=== PATIENT | male | born 1950 | race Caucasian/White ===

== ENCOUNTER 2018-01-16 01:15 | Day surgery (SDC) | payer OTHER ==
--- OUTSIDE RECORDS SUMMARY | 2018-01-16 01:17 | XMS REPORT ---
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 50125901503 18 MG/3ML January 07, Jul 06, Active 1.2 units Subcutaneous 2017 2017 daily Results No Known Results Summary Purpose eClinicalWorks Submission
--- OUTSIDE RECORDS SUMMARY | 2018-01-16 01:17 | XMS REPORT ---
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
--- OUTSIDE RECORDS SUMMARY | 2018-01-16 01:17 | XMS REPORT ---
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 Problem Essential hypertension I10 Active Problem Body mass index (BMI) of 31.0-31.9 Z68.31 Active in adult Problem Pure hypercholesterolemia E78.00 Active Problem Diabetes 1.5, 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 Problem Acquired hypothyroidism E03.9 Active Problem Obstructive sleep apnea G47.33 Active Assessment Microalbuminuria R80.9 Active Assessment Obstructive sleep apnea G47.33 Active Assessment Body mass index (BMI) of 31.0-31.9 Z68.31 Active in adult Medications Medication Code Code Instructions Start End Status Dosage System Date Date Lisinopril ND 95790865074 20 MG Orally December 26, Active 1 tablet Once a day 2017 Glimepiride ND 68092752670 1 MG Orally May Inactive 1 tablet Once a day , 2017 breakfast or the first main meal of the day Metformin HCl ND 28395312839 500 MG Orally Active 2 tablet Once a day with a meal Multivitamin [facility] 35572504233 - Orally Active not defined Adult Bydureon BCise ND 62788617900 2 MG/0.85ML December 26Jun Active as directed Subcutaneous 2018 , 2018 Adult Aspirin EC ND 72488578202 81 MG Orally December 26Jun Active 1 tablet Low Strength Once a day 2017 Simvastatin ND 87569302896 20 MG Orally December 26, Active 1 tablet in Once a day 2018 the evening Amitriptyline ND 71470362245 10 MG Orally Active 1 tablet HCl Once a day Pantoprazole ND 10486940484 20 MG Orally Active 1 tablet Sodium Once a day Results No Known Results Summary Purpose eClinicalWorks Submission
[2018-01-16] MEDS ORDERED: GLUCAGON 1 MG/VIAL ONE ×2 (02:01→04:20)
[2018-01-16] MEDS ORDERED: NA CHLORIDE 0.9% 1,000 ML ONE ×2 (02:01→07:45)
[2018-01-16] MEDS ORDERED: FAMOTIDINE 20 MG/2 ML VIAL IV ONE (02:01)
[2018-01-16 02:24] LABS: Absolute Lymphocytes (CBC) 2.5 K/uL (0.7-4.9); Absolute Neutrophil 8.9 K/uL (1.8-8.0); Basophils % 1.2 % (0-1.3); Eosinophils % 2.5 % (0-4.4); Hematocrit 46.8 % (39.6-49.0); Lymphocytes % 19.2 % (15.3-44.8); MCH 30.6 pg (27.0-35.0); MPV 9.8 fL (7.6-11.3); Monocytes % 7.5 % (3.3-12.3); RBC Red Blood Cell Count 5.26 M/uL (4.33-5.43)
[2018-01-16 02:27] LABS: Protime INR 0.95
[2018-01-16 02:36] LABS: Bicarbonate 24 mEq/L (21-31); Glucose Level 216 mg/dL (65-120); Lipase 58 U/L (22-51); Potassium 4.3 mEq/L (3.6-5.0); Sodium Level 137 mEq/L (135-145)
[2018-01-16 02:40] LABS: CKMB Creatine Kinase MB 4.4 ng/ml (0.3-4.0)
[2018-01-16 02:42] LABS: ALT/SGPT 27 IU/L (10-60); AST/SGOT 22 IU/L (10-42); Albumin 4.2 g/dL (3.2-5.5); Alkaline Phosphatase 68 IU/L (42-121); BUN Blood Urea Nitrogen 15 mg/dL (6-20); Bilirubin Direct 0.1 mg/dL (0-0.2); Creatine Phosphokinase 165 IU/L (22-269); Protein, Total 7.8 g/dL (6.0-8.3)
--- NOTE | 2018-01-16 04:11 | ER ---
Nurse's Notes [facility] Name: Obie Maldonado Age: 67 yrs Sex: Male : 1950 Arrival Date: 01/16/2018 Time: 01:17 Bed 8 Private MD: Leroy Temple Diagnosis: Food in esophagus;Chest pain, unspecified;Abdominal tenderness;Type 2 diabetes mellitus Presentation: 01/16 01:28 Presenting complaint: Patient states: "Today I had a stake and bronchioli for dinner ao and then I started to had abdominal pain and vomiting." Patient pins at the epigastric area. Patient also complains of unable to burp and gas. Transition of care: patient was not received from another setting of care. Onset of symptoms was January 15, 2018 at 16:00. Risk Assessment: Do you want to hurt yourself or someone else? Patient reports no desire to harm self or others. Initial Sepsis Screen: Does the patient meet any 2 criteria? No. Patient's initial sepsis screen is negative. Does the patient have a suspected source of infection? No. Patient's initial sepsis screen is negative. Care prior to arrival: None. 01:28 Method Of Arrival: Ambulatory ao 01:28 Acuity: LAUREN 3 ao Triage Assessment: 01:33 General: Appears in no apparent distress. comfortable, Behavior is calm, cooperative, ao appropriate for age. Pain: Complains of pain in epigastric area Pain does not radiate. Pain currently is 5 out of 10 on a pain scale. EENT: No signs and/or symptoms were reported regarding the EENT system. Neuro: Level of Consciousness is awake, alert, Oriented to person, place, time, situation, Appropriate for age Computer Support Technician are equal bilaterally Moves all extremities. Speech is normal, Facial symmetry appears normal. Cardiovascular: Capillary refill < 3 seconds Patient's skin is warm and dry. Respiratory: Airway is patent Respiratory effort is even, unlabored, Respiratory pattern is regular, symmetrical. GI: Abdomen is obese, Reports upper abdominal pain, nausea, Pain is 5 out of 10 on a pain scale. vomiting, since 1600 yesterday. : No signs and/or symptoms were reported regarding the genitourinary system. Derm: Skin is intact, Skin is pink, warm \\T\\ dry. Skin temperature is warm. Musculoskeletal: No signs and/or symptoms reported regarding the musculoskeletal system. Historical: - Allergies: 01:33 No Known Allergies; ao - Home Meds: :33 Metformin Oral [Active]; Simvastatin Oral [Active]; Lisinopril Oral [Active]; ao - PMHx: :33 Hypertension; Diabetes - NIDDM; ao - PSHx: :33 Appendectomy; ao - Immunization history:: Adult Immunizations up to date. - Social history:: Smoking status: Patient uses tobacco products, smokes one pack cigarettes per day. Patient uses alcohol, occasionally. Patient/guardian denies using street drugs. - Ebola Screening: : Patient negative for fever greater than or equal to 101.5 degrees Fahrenheit, and additional compatible Ebola Virus Disease symptoms Patient denies exposure to infectious person Patient denies travel to an Ebola-affected area in the 21 days before illness onset. - Family history:: not pertinent. Screenin:33 Abuse screen: Denies threats or abuse. Denies injuries from another. Nutritional ao screening: No deficits noted. Tuberculosis screening: No symptoms or risk factors identified. Fall Risk None identified. Assessment: 01:35 General: See triage assessment. GI: Bowel sounds present X 4 quads. Abd is soft and non ao tender. 02:36 Reassessment: Patient appears in no apparent distress at this time. Patient and/or ao family updated on plan of care and expected duration. Pain level reassessed. Patient is alert, oriented x 3, equal unlabored respirations, skin warm/dry/pink. 03:46 Reassessment: Patient and/or family updated on plan of care and expected duration. Pain ao level reassessed. Patient is alert, oriented x 3, equal unlabored respirations, skin warm/dry/pink. Patient has not vomited and states that his nausea is gone. 07:34 Reassessment: Pt transported to endoscopy via wheelchair with ASTER Moon. jl7 Vital Signs: 01:27 BP 141 / 85; Pulse 103; Resp 18; Temp 98.7; Pulse Ox 95% on R/A; Weight 106.59 kg; ao Height 6 ft. 0 in. (182.88 cm); Pain 5/10; 02:36 BP 143 / 75; Pulse 84; Resp 18; Pulse Ox 98% ; ao 03:46 BP 133 / 87; Pulse 84; Resp 16; Pulse Ox 99% ; Pain 0/10; ao 01:27 Body Mass Index 31.87 (106.59 kg, 182.88 cm) ao ED Course: 01:17 Patient arrived in ED. am2 01:18 Leroy Temple MD is Private Physician. am2 01:30 Domenico Hackett MD is Attending Physician. indy 01:31 Triage completed. ao 01:31 Arm band placed on right wrist. Patient placed in an exam room, on a stretcher, on ao pulse oximetry, Patient notified of wait time. 01:35 Patient has correct armband on for positive identification. Pulse ox on. NIBP on. ao 01:38 Abdelrahman Chadwick, RN is Primary Nurse. ao 02:02 X-ray completed. Portable x-ray completed in exam room. Patient tolerated procedure kw well. 02:03 XRAY Chest (1 view) In Process Unspecified. EDMS 04:08 Leroy Temple MD is Hospitalizing Provider. indy 06:[address] via wheelchair. kw1 06:02 CT completed. Patient tolerated procedure well. Patient moved back from CT. kw1 07:01 No provider procedures requiring assistance completed. Patient admitted, IV remains in ao place. Administered Medications: 02:19 Drug: NS 0.9% 500 ml Route: IV; Rate: bolus; Site: left antecubital; ao 07:00 Follow up: IV Status: Completed infusion ao 02:19 Drug: Pepcid 20 mg Route: IVP; Site: left antecubital; ao 06:53 Follow up: Response: No adverse reaction ao 02:19 Drug: Glucagon 1 mg Route: IVP; Site: left antecubital; ao 07:01 Follow up: Response: No adverse reaction ao 02:50 Drug: NS 0.9% 1000 ml Route: IV; Rate: 125 ml/hr; Site: left antecubital; ao 07:00 Follow up: IV Status: Completed infusion ao 04:24 Drug: Glucagon 1 mg Route: IVP; Site: left antecubital; ao 07:00 Follow up: Response: No adverse reaction ao Outcome: 04:10 Decision to Hospitalize by Provider. indy 07:01 Admitted to ER Hold. Please see [facility] for further documentation. ao 07:01 Condition: stable 07:01 Instructed on the need for admit. 07:34 Patient left the ED. jl7 Signatures: Dispatcher [employer] Domenico Crook MD MD cha Whitley, Kimberlee kw Ortiz, Alex, RN RN ao Leal, Jahala, RN RN jl7 Celina Booker Kimberly [facility]
--- NOTE | 2018-01-16 04:11 | EDPHYS ---
Physician Documentation [facility] Name: Obie Maldonado Age: 67 yrs Sex: Male : 1950 Arrival Date: 01/16/2018 Time: 01:17 Bed 8 Private MD: Leroy Temple ED Physician Domenico Hackett HPI: 01/16 01:49 This 67 yrs old Male presents to ER via Ambulatory with complaints of indy Abdominal Distention, Epigastric Pain, burping often. 01:49 The patient or guardian reports chest pain that is located primarily in the substernal indy area, epigastric area. Onset: just prior to arrival, this morning. The patient presents with abdominal pain in the epigastric area, in the upper abdomen. Onset: The symptoms/episode began/occurred just prior to arrival, this morning. The patient presents to the emergency department with nausea, vomiting, abdominal pain, of the epigastric area. Onset: The symptoms/episode began/occurred just prior to arrival, this morning. Possible causes: food bolus, steak. The symptoms are aggravated by food , The symptoms are alleviated by nothing. remaining still. Historical: - Allergies: 01:33 No Known Allergies; ao - Home Meds: 01:33 Metformin Oral [Active]; Simvastatin Oral [Active]; Lisinopril Oral [Active]; ao - PMHx: 01:33 Hypertension; Diabetes - NIDDM; ao - PSHx: 01:33 Appendectomy; ao - Immunization history:: Adult Immunizations up to date. - Social history:: Smoking status: Patient uses tobacco products, smokes one pack cigarettes per day. Patient uses alcohol, occasionally. Patient/guardian denies using street drugs. - Ebola Screening: : Patient negative for fever greater than or equal to 101.5 degrees Fahrenheit, and additional compatible Ebola Virus Disease symptoms Patient denies exposure to infectious person Patient denies travel to an Ebola-affected area in the 21 days before illness onset. - Family history:: not pertinent. ROS: 01:49 Constitutional: Negative for fever, chills, and weight loss, Eyes: Negative for injury, indy pain, redness, and discharge, ENT: Negative for injury, pain, and discharge, Neck: Negative for injury, pain, and swelling, Cardiovascular: Negative for chest pain, palpitations, and edema, Respiratory: Negative for shortness of breath, cough, wheezing, and pleuritic chest pain, Back: Negative for injury and pain, : Negative for injury, bleeding, discharge, and swelling, MS/Extremity: Negative for injury and deformity, Skin: Negative for injury, rash, and discoloration, Neuro: Negative for headache, weakness, numbness, tingling, and seizure, Psych: Negative for depression, anxiety, suicide ideation, homicidal ideation, and hallucinations, Allergy/Immunology: Negative for hives, rash, and allergies, Endocrine: Negative for neck swelling, polydipsia, polyuria, polyphagia, and marked weight changes, Hematologic/Lymphatic: Negative for swollen nodes, abnormal bleeding, and unusual bruising. 01:49 Abdomen/GI: Positive for abdominal pain, nausea and vomiting. Exam: 01:49 Constitutional: This is a well developed, well nourished patient who is awake, alert, indy and in no acute distress. Head/Face: Normocephalic, atraumatic. Eyes: Pupils equal round and reactive to light, extra-ocular motions intact. Lids and lashes normal. Conjunctiva and sclera are non-icteric and not injected. Cornea within normal limits. Periorbital areas with no swelling, redness, or edema. ENT: Nares patent. No nasal discharge, no septal abnormalities noted. Tympanic membranes are normal and external auditory canals are clear. Oropharynx with no redness, swelling, or masses, exudates, or evidence of obstruction, uvula midline. Mucous membranes moist. Neck: Trachea midline, no thyromegaly or masses palpated, and no cervical lymphadenopathy. Supple, full range of motion without nuchal rigidity, or vertebral point tenderness. No Meningismus. Chest/axilla: Normal chest wall appearance and motion. Nontender with no deformity. No lesions are appreciated. Cardiovascular: Regular rate and rhythm with a normal S1 and S2. No gallops, murmurs, or rubs. Normal PMI, no JVD. No pulse deficits. Respiratory: Lungs have equal breath sounds bilaterally, clear to auscultation and percussion. No rales, rhonchi or wheezes noted. No increased work of breathing, no retractions or nasal flaring. Back: No spinal tenderness. No costovertebral tenderness. Full range of motion. Male : Normal genitalia with no discharge or lesions. Skin: Warm, dry with normal turgor. Normal color with no rashes, no lesions, and no evidence of cellulitis. MS/ Extremity: Pulses equal, no cyanosis. Neurovascular intact. Full, normal range of motion. Neuro: Awake and alert, GCS 15, oriented to person, place, time, and situation. Cranial nerves II-XII grossly intact. Motor strength 5/5 in all extremities. Sensory grossly intact. Cerebellar exam normal. Normal gait. Psych: Awake, alert, with orientation to person, place and time. Behavior, mood, and affect are within normal limits. 01:49 Abdomen/GI: Inspection: distension, Bowel sounds: normal, Palpation: mild abdominal tenderness, in all quadrants. Vital Signs: 01:27 BP 141 / 85; Pulse 103; Resp 18; Temp 98.7; Pulse Ox 95% on R/A; Weight 106.59 kg; ao Height 6 ft. 0 in. (182.88 cm); Pain 5/10; 02:36 BP 143 / 75; Pulse 84; Resp 18; Pulse Ox 98% ; ao 03:46 BP 133 / 87; Pulse 84; Resp 16; Pulse Ox 99% ; Pain 0/10; ao 01:27 Body Mass Index 31.87 (106.59 kg, 182.88 cm) ao MDM: 01:30 Patient medically screened. [facility] 01:52 Data reviewed: vital signs, nurses notes, lab test result(s), EKG, radiologic studies, [facility] CT scan, plain films. 01/16 01:47 Order name: Basic Metabolic Panel; Complete Time: 03:41 [facility] 01/16 01:47 Order name: BNP; Complete Time: 03:41 [facility] 01/16 01:47 Order name: CBC with Diff; Complete Time: 03:41 [facility] 01/16 01:47 Order name: Ckmb; Complete Time: 03:41 [facility] 01/16 01:47 Order name: CPK; Complete Time: 03:41 [facility] 01/16 01:47 Order name: LFT's; Complete Time: 03:41 [facility] 01/16 01:47 Order name: Magnesium; Complete Time: 03:41 [facility] 01/16 01:47 Order name: PT-INR; Complete Time: 03:41 [facility] 01/16 01:47 Order name: Ptt, Activated; Complete Time: 03:41 [facility] 01/16 01:47 Order name: Troponin (emerg Dept Use Only); Complete Time: 03:41 [facility] 01/16 01:47 Order name: Lipase; Complete Time: 03:41 [facility] 01/16 04:18 Order name: Basic Metabolic Panel EDMS 01/16 04:18 Order name: Basic Metabolic Panel EDMS 01/16 04:18 Order name: CBC with Automated Diff EDMS 01/16 01:47 Order name: XRAY Chest (1 view) [facility] 01/16 01:47 Order name: EKG; Complete Time: 01:48 [facility] 01/16 04:08 Order name: CT Chest, Abdomen, Pelvis - W/Contrast: no oral [facility] 01/16 04:18 Order name: CBC with Automated Diff EDMS 01/16 04:18 Order name: Troponin I EDMN 01/16 04:18 Order name: Troponin I EDMN 01/16 04:18 Order name: Troponin I EDMN 01/16 04:18 Order name: Chest Single View EDMS 01/16 04:18 Order name: Chest Single View EDMS 01/16 06:29 Order name: Urine Dipstick--Ancillary (enter results) rg 01/16 06:51 Order name: Urine Dipstick-Ancillary EDMN 01/16 01:47 Order name: Cardiac monitoring; Complete Time: 02:19 [facility] 01/16 01:47 Order name: EKG - Nurse/Tech; Complete Time: 06:53 [facility] 01/16 01:47 Order name: IV Saline Lock; Complete Time: 02:20 [facility] 01/16 01:47 Order name: Labs collected and sent; Complete Time: 02:20 [facility] 01/16 01:47 Order name: O2 Per Protocol; Complete Time: 02:20 [facility] 01/16 01:47 Order name: O2 Sat Monitoring; Complete Time: 02:20 [facility] 01/16 01:47 Order name: Urine Dipstick-Ancillary (obtain specimen); Complete Time: 06:53 [facility] 01/16 04:18 Order name: CONS Physician Consult EDMN 01/16 04:18 Order name: NPO EDMN 01/16 04:18 Order name: EKG Electrocardiogram EDMS 01/16 04:18 Order name: EKG Electrocardiogram EDMS 01/16 04:18 Order name: EKG Electrocardiogram EDMS 01/16 04:18 Order name: EKG Electrocardiogram EDMS 01/16 04:18 Order name: EKG Electrocardiogram EDMS Administered Medications: 02:19 Drug: NS 0.9% 500 ml Route: IV; Rate: bolus; Site: left antecubital; ao 07:00 Follow up: IV Status: Completed infusion ao 02:19 Drug: Pepcid 20 mg Route: IVP; Site: left antecubital; ao 06:53 Follow up: Response: No adverse reaction ao 02:19 Drug: Glucagon 1 mg Route: IVP; Site: left antecubital; ao 07:01 Follow up: Response: No adverse reaction ao 02:50 Drug: NS 0.9% 1000 ml Route: IV; Rate: 125 ml/hr; Site: left antecubital; ao 07:00 Follow up: IV Status: Completed infusion ao 04:24 Drug: Glucagon 1 mg Route: IVP; Site: left antecubital; ao 07:00 Follow up: Response: No adverse reaction ao Disposition: 01/16/18 04:10 Hospitalization ordered by Leroy Temple for Observation. Preliminary diagnosis are Food in esophagus, Chest pain, unspecified, Abdominal tenderness, Type 2 diabetes mellitus. - Bed requested for [facility] ER HOLD. - Status is Observation. jl7 - Condition is Fair. - Problem is new. - Symptoms are unchanged. UTI on Admission? No Signatures: Dispatcher [employer] EDMS Kimberly Moore RN RN kl Anderson, Corey, MD MD cha Ortiz, Alex RN Lm Pedraza RN RN jl7 Corrections: (The following items were deleted from the chart) 06:11 04:10 Hospitalization Ordered by Leroy Temple MD for Observation. Preliminary diagnosis kl is Food in esophagus; Chest pain, unspecified; Abdominal tenderness; Type 2 diabetes mellitus. Bed requested for Telemetry/MedSurg (observation). Status is Observation. Condition is Fair. Problem is new. Symptoms are unchanged. UTI on Admission? No. indy 07:34 06:11 01/16/2018 04:10 Hospitalization Ordered by Leroy Temple MD for Observation. jl7 Preliminary diagnosis is Food in esophagus; Chest pain, unspecified; Abdominal tenderness; Type 2 diabetes mellitus. Bed requested for [facility] ER HOLD. Status is Observation. Condition is Fair. Problem is new. Symptoms are unchanged. UTI on Admission? No. carri
[2018-01-16] MEDS ORDERED: ONDANSETRON 4 MG/2 ML VIAL IV PRN (04:15)
[2018-01-16] MEDS ORDERED: MORPHINE 4 MG/ML SYR IV PRN (04:15)
[2018-01-16] MEDS ORDERED: ACETAMINOPHEN 500 MG TAB PO PRN (04:15)
[2018-01-16] MEDS ORDERED: NA CHLORIDE 0.9% 1,000 ML IV SCH (05:00)
[2018-01-16 06:50] LABS: Urine Blood NEGATIVE (NEG); Urine Glucose 2+ (NEG); Urine Protein NEGATIVE (NEG); Urine pH 5.5 (5.0-7.0)
[2018-01-16 07:14] VITALS: BMI 31.8
[2018-01-16] MEDS ORDERED: PROPOFOL 200 MG/20 ML VIAL IV ONE (08:11)
--- NOTE | 2018-01-16 08:24 | EKG ---
Test Date: 2018-01-16 Test Time: 02:25:54 Herbarium Worker: BRYAN MEASUREMENT RESULTS: Intervals: Rate: 80 SC: 202 QRSD: 116 QT: 396 QTc: 456 [place]: P: 38 SC: 202 QRS: -31 T: 42 INTERPRETIVE STATEMENTS: Normal sinus rhythm Left axis deviation Cannot rule out Anterior infarct, age undetermined Abnormal ECG No previous ECG available for comparison Electronically Signed On 01-16-18 08:24:23 CDT by Juanpablo Jansen
[2018-01-16 08:44] VITALS: TEMP 97.2
[2018-01-16 08:46] VITALS: BP 143/74
[2018-01-16] MEDS ORDERED: FAMOTIDINE 20 MG/2 ML VIAL IV SCH (09:00)
--- NOTE | 2018-01-16 09:30 | P.SSS ---
Patient History Date of Service: 01/16/18 Primary Care Provider: Windy Reason for admission: Esophageal stricture History of Present Illness: Patient comes in to the ER after eating steak and feeling it getting stuck. He was seen by Dr. Mckinney who did an endoscopy. He has no complaints at the moment. The patient was using omeprazole. However was having worsening of his gerd symptoms. Allergies No Known Allergies Allergy (Verified 01/16/18 06:58) Home Medications: Pantoprazole Sodium [Protonix] 40 mg PO DAILY #90 tablet. 01/16/18 - Past Medical/Surgical History Has patient received pneumonia vaccine in the past: Yes Diabetic: No -: Hypertension -: NIDDM -: Appendectomy - Social History Smoking Status: Current every day smoker Alcohol use: Yes CD- Drugs: No Caffeine use: Yes Place of Residence: Home Review of Systems 10-point ROS is otherwise unremarkable Gastrointestinal: Other (dysphagia) Physical Examination - Vital Signs Temperature: 97.2 F Blood Pressure: 143/74 Pulse: 76 Respirations: 18 Pulse Ox (%): 98 - Physical Exam General: Alert, In no apparent distress HEENT: Atraumatic, PERRLA, Mucous membr. moist/pink, EOMI, Sclerae nonicteric Neck: Supple, 2+ carotid pulse no bruit, No LAD, Without JVD or thyroid abnormality Respiratory: Clear to auscultation bilaterally, Normal air movement Cardiovascular: Regular rate/rhythm, Normal S1 S2 Gastrointestinal: Normal bowel sounds, No tenderness Musculoskeletal: No tenderness Integumentary: No rashes Neurological: Normal gait, Normal speech, Normal strength at 5/5 x4 extr, Normal tone, Normal affect Lymphatics: No axilla or inguinal lymphadenopathy - Studies Laboratory Data (last 24 hrs) 01/16/18 02:08: PT 11.2, INR 0.95, APTT 27.5 01/16/18 02:08: WBC 12.8 H, Hgb 16.1, Hct 46.8, Plt Count 241 01/16/18 02:08: B-Natriuretic Peptide 29 01/16/18 02:08: Sodium 137, Potassium 4.3, BUN 15, Creatinine 0.66, Glucose 216 H, Magnesium 2.0, Total Bilirubin 1.0, AST 22, ALT 27, Alkaline Phosphatase 68, Lipase 58 H - Diagnosis (Problem(s)) (1) Benign esophageal stricture Current Visit: Yes Status: Acute Plan: food was removed during endoscopy. Patient to start protonix. Follow up with Dr. Mckinney next week for serial esophageal dilatation. Will have hims started on a clear liquid diet. If he tolerates this will discharge him. (2) Diabetes 1.5, managed as type 2 Current Visit: Yes Status: Acute Plan: Patient is being followed in the office. Recently started on victoza (3) HTN (hypertension) Current Visit: Yes Status: Acute Plan: stable at this time continue home medications. Qualifiers: Hypertension type: essential hypertension Qualified Code(s): I10 - Essential (primary) hypertension (4) Hypothyroidism (acquired) Current Visit: Yes Status: Acute Plan: Continue home medications (5) Obstructive sleep apnea Current Visit: Yes Status: Acute Plan: Continue CPAP - Disposition Disposition: ROUTINE DISCHARGE Condition: GOOD Diet: Pat[place] Activity: Ad sadia Physician Review: Patient Assessed, Agree with Above Assessment and Plan Critical Care: No Time Spent Managing Pts Care (In Minutes): 35
--- NOTE | 2018-01-16 09:46 | RAD REPORT ---
EXAM DESCRIPTION: RAD - Chest Single View - 01/16/2018 2:04 am CLINICAL HISTORY: Chest pain. COMPARISON: None. FINDINGS: Portable technique limits examination quality. The lungs are grossly clear. The heart is normal in size. No displaced fractures. IMPRESSION: No acute intrathoracic process suspected.
[2018-01-16 10:12] VITALS: O2SAT 100
--- NOTE | 2018-01-16 10:19 | RAD REPORT ---
EXAM DESCRIPTION: CT - Chest Abdomen Pelvis W Cont - 01/16/2018 9:26 am CLINICAL HISTORY: Chest and abdomen pain. Chest pain;Abdominal distention COMPARISON: Chest Single View dated 01/16/2018 TECHNIQUE: All CT scans are performed using dose optimization technique as appropriate and may inclu de automated exposure control or mA/KV adjustment according to patient size. FINDINGS: The lungs are clear.Small hiatal hernia is seen with diffuse distention of the esophagus w ith fluid noted.No pleural or pericardial effusion.No intrathoracic adenopathy. Diffuse fatty liver is seen. The spleen, pancreas, adrenal glands and kidneys are within normal limit s. No bowel obstruction, free air, free fluid or abscess. No pathologic lymphadenopathy in the abdomen o r pelvis. Moderate retained stool in the colon. Mild to moderate prostatomegaly. Bilateral fat contai marcio inguinal hernias, larger on the right. The appendix is not identified as a discrete structure, however, no secondary findings of appendiciti s are identified. IMPRESSION: Fluid filled and mildly patulous esophagus seen with a small hiatal hernia. Esophageal d ysmotility or reflux is possible. Fatty liver.
--- OUTSIDE RECORDS SUMMARY | 2018-01-16 11:21 | XMS REPORT ---
[...] Start End Date Status Dosage Date Victoza [facility] [id number] 18 MG/3ML January 07, Jul 06, Active 1.2 units Subcutaneous 2017 2017 daily Results No Known Results Summary Purpose eClinicalWorks Submission
--- OUTSIDE RECORDS SUMMARY | 2018-01-16 11:21 | XMS REPORT ---
[...] End Status Dosage System Date Date Bydureon [facility] 61295014848 2 MG/0.85ML December 26, Jun 24, Active as directed Subcutaneous 2017 2017 weekly Results No Known Results Summary Purpose eClinicalWorks Submission
--- OUTSIDE RECORDS SUMMARY | 2018-01-16 11:21 | XMS REPORT ---
[...] Status Dosage System Date Date Lisinopril ND 43351454874 20 MG Orally December 26, Active 1 tablet Once a day 2017 Glimepiride ND 09668030003 1 MG Orally May Inactive 1 tablet Once a day , 2017 breakfast or the first main meal of the day Metformin HCl ND 67176481174 500 MG Orally Active 2 tablet Once a day with a meal Multivitamin [facility] 81887069764 - Orally Active not defined Adult Bydureon BCise ND 36317074828 2 MG/0.85ML December 26Jun Active as directed Subcutaneous 2018 , 2018 Adult Aspirin EC ND 48798953513 81 MG Orally December 26Jun Active 1 tablet Low Strength Once a day 2017 Simvastatin ND 71441960579 20 MG Orally December 26, Active 1 tablet in Once a day 2018 the evening Amitriptyline ND 65177079379 10 MG Orally Active 1 tablet HCl Once a day Pantoprazole ND 68998025368 20 MG Orally Active 1 tablet Sodium Once a day Results No Known Results Summary Purpose eClinicalWorks Submission
--- NOTE | 2018-01-16 12:41 | CON ---
Date of Consultation: 01/16/2018 A 67-year-old male, Dr. Temple an emergency room of [facility]. Reason For Consultation: 1.Inability to swallow. 2.Foreign body impaction of the esophagus. History Of Present Illness: Mr. Maldonado is a 67-year-old gentleman with previous history of hypertensi on. The patient also has a prolonged history of GERD. He has been having years of dysphagia predomi nantly for solid food. In last 1 year, it is progressively getting worse. In the past multiple time s, he had food impaction, which he was able to manage himself by gagging, coughing and by changing an d by different maneuvers that he normally does. However, at this time, a meat bolus got stuck, he th inks it is a piece of chicken and is not going up or down. He has been unable to swallow his own sec retion and has been slowly spitting it out. Denies any chest pain, however, has epigastric pain and discomfort, which also he has on a chronic intermittent basis. The pain does not radiate to the back . Its intensity is 3/10. He denies any shortness of breath, however, he does have chronic cough. D enies any past history of pneumonia. Denies any associated odynophagia. There is no history of tomasz temesis, melena, or hematochezia. Past Medical History: Hypertension, obesity as elaborated above. Past Surgical History: Not related to current problem. Family History: Denies any gastrointestinal malignancy in the family. Social History: Occasional alcohol. No tobacco. Psychiatric History: None. Allergies: REVIEWED IN THE CHART. Medications: Reviewed in the chart. Review of Systems: General: No weight loss, weight gain. Appetite is good. No travel history. No fever, chills. GI: As elaborated above. Hepatology: Denies any history of jaundice, hepatitis, or any other known hepatic illnesses. Pulmonary: No shortness of breath, chronic cough without expectoration. Cardiac: No palpitation, heart murmur. No orthopnea or dyspnea. Genitourinary: No active complaint. Musculoskeletal: No arthralgia, myalgia. He is able to do normal activities. Dermatologic: No new complaint. Neuropsychiatric: None. Neuroendocrine: None. Genitourinary: Just low flow rate. Physical Examination: General: Mildly obese male, no other acute distress noted. Hemodynamic respiratory profile within n ormal range; however, totally unable to swallow and he is spitting out on a jar clear saliva. HEENT: Atraumatic, normocephalic. Oropharynx is clear. Neck: Supple. No lymphadenopathy. Trachea central in position. No temporal wasting. No facial wa sting. No erythema. Chest: Clear to auscultation and percussion. Cardiovascular: Normal S1, S2. No S3, no S4. Abdomen: Soft, however, epigastric tenderness. No hepatomegaly. No splenomegaly. No ascites. No succussion splash. No acute tenderness. Bowel sounds are excellent. Extremities: Upper and lower extremities are normal and symmetrical. Muscle mass is normal. Dermatologic: Exposed skin surfaces and the dorsum of the body appears to be all normal. Neurological: Alert and oriented x3. Intact memory, mentation, and judgment. Can move all parts of his extremities without any focal deficit. Diagnostic Data/radiologic Data: Reviewed, analyzed. Impression, Plan, And Recommendation: Mr. Maldonado is a 67-year-old gentleman with prolonged dysphagia and gastroesophageal reflux disease. Most likely, he has a peptic stricture of the esophagus and for eign body impaction. Plan on this case will be giving him IV fluid hydration. The medical treatment with glucagon has failed, therefore at this time, the only option or even the b est option will be an emergency EGD with removal of foreign body. I have discussed with the patient regarding the indications, contraindications, possible complication s, and alternatives of this procedure, specially considering this is an emergency procedure and he ma y have already foreign body induced ischemia in the esophagus, he is high risk of perforation. He un derstands and he is willing to take the risk. Discussion of complications included also risk of anes thesia including rare fatalities. Long-term plan on him will be for outpatient followup and regular dilation. The patient has been adv ised about that, I am not sure whether he will follow up or not. All his questions have been answere d to his satisfaction. RANDI/HEDY Voice ID: [id number] Report ID: [id number]
--- NOTE | 2018-01-16 12:47 | OP ---
Date of Procedure: 01/16/2018 Surgeon: Amy Mckinney MD Procedure: 1.Emergency EGD. 2.Foreign body removal. Anesthesia: By Department of Anesthesia. Indications: 1.See my consultation. 2.Foreign body infection of the esophagus. Premedications: Per Anesthesia. Complexity: Complex procedure by very nature. Tolerance Of Sedation: Excellent. Procedure In Detail: Procedure, possible complications, and alternatives including, but not limited to the possibility of bleeding, perforation, tear, infection, sepsis, need for surgery, need for bloo d transfusion, and anesthesia related problem including rare fatality and specifically high risk natu re of this procedure itself due to emergency nature and his prolonged condition and probably very sev ere stricture has been described and he understands. Informed consent was obtained. In left lateral position, scope was passed. As soon as scope was passed, the esophagus was full of f luid. This has been painstakingly suctioned out. Eventually, the large food bolus in the distal are a consisting of chicken piece has been found. With gentle breakup by the pressure of the scope, I was able to push the whole bolus seen and clear h is esophagus. Severe stricture with ulcer and damages related to his gagging was noted. In the stomach, diffuse gastritis noted. Duodenal bulb also had mild erosion. Duodenal part 2 appea red to be the normal range. Having done the above procedure in a safe, diligent, and satisfactory manner, endoscope and rest of t he endoscopic accessories were removed. On retroflexion due to fluid, it was not clear; however, the patient probably also has a hiatal hernia. Impression: 1.Emergency foreign body impaction has been removed with emergency EGD. 2.Esophageal stenosis. 3.Likely ischemia. 4.Likely hiatal hernia. 5.Gastritis. 6.Duodenitis. Plan: 1.On PPI. 2.We will start clear liquid diet; however, if he tolerates, he is supposed to go home. 3.Follow up in GI office in 1-2 weeks and arrange outpatient dilation on a progressive basis as soon as possible. Complications: None. The patient tolerated the procedure well in the immediate. RANDI/HEDY Voice ID: [id number] Report ID: [id number]
== END 2018-01-16 10:20 | disposition home or self-care (01) ==
LOC: ER 01:15 → UNDOADMOB 04:13 → ERHOLD 04:13 → ENDO 04:24 → UNDODISOB 10:20 → ENDO 10:20
PROVIDERS: ATTEND Internal Medicine Gastroenterology
PROC: 0DC58ZZ Extirpation of Matter from Esophagus, Via Natural or Artificial Opening Endoscopic (ICD-10-PCS; principal; 2018-01-16 08:00)
DX: K22.2 Esophageal obstruction (principal); I10 Essential (primary) hypertension; E11.9 Type 2 diabetes mellitus without complications; F17.210 Nicotine dependence, cigarettes, uncomplicated; R13.10 Dysphagia, unspecified; E03.9 Hypothyroidism, unspecified; G47.33 Obstructive sleep apnea (adult) (pediatric); E66.9 Obesity, unspecified; K21.9 Gastro-esophageal reflux disease without esophagitis; K22.10 Ulcer of esophagus without bleeding; K29.70 Gastritis, unspecified, without bleeding; K29.80 Duodenitis without bleeding
CPT/HCPCS: 36415; 43247; 71045; 71260; 74177; 80048; 80076; 81003; 82550; 82553; 83690; 83735; 83880; 84484 ×3; 85025; 85610; 85730; 93005; 96361; 96374; 96375; 99285; J1610 ×2; J7030 ×2; Q9967

== ENCOUNTER 2020-11-17 09:54 | Day surgery (SDC) | payer OTHER ==
[2020-11-14 13:55] LABS: Absolute Lymphocytes (CBC) 2.1 K/uL (0.7-4.9); Basophils % 0.2 % (0-1.3); Hematocrit 47.4 % (39.6-49.0); Lymphocytes % 28.3 % (15.3-44.8); MPV 8.9 fL (7.6-11.3); RBC Red Blood Cell Count 5.21 M/uL (4.33-5.43)
[2020-11-14 14:14] LABS: Protime INR 0.92
[2020-11-14 14:15] LABS: BUN Blood Urea Nitrogen 15 mg/dL (7-18); Bicarbonate 26 mmol/L (21-32); Glucose Level 111 mg/dL (74-106); Potassium 4.4 mmol/L (3.5-5.1); Sodium Level 138 mmol/L (136-145)
--- NOTE | 2020-11-14 14:17 | RAD REPORT ---
EXAM DESCRIPTION: RAD - Chest Pa And Lat (2 Views) - 11/14/2020 1:59 pm CLINICAL HISTORY: preoppending cardiac catheterization COMPARISON: May 2018 TECHNIQUE: Frontal and lateral views of the chest were obtained. FINDINGS: The lungs are clear. Interstitial pattern matches comparison. Heart size is normal and ce ntral vasculature is within normal limits. No pleural effusion or pneumothorax seen. No acute bony finding noted. No aortic abnormality. IMPRESSION: No acute cardiopulmonary process. No significant change from comparison study.
[2020-11-17] MEDS ORDERED: HEPA 1000U/500MLS 0 UNIT/0 ML BAG IV ONE (11:04)
[2020-11-17] MEDS ORDERED: NA CHLORIDE 0.9% 500 ML ONE (13:06)
[2020-11-17] MEDS ORDERED: HEPA 1000U/500MLS 2,000 UNIT/1,000 ML BAG IV ONE (15:23)
[2020-11-17] MEDS ORDERED: HEPARIN 5000 UNIT/ML 1 ML VIAL ONE (15:24)
[2020-11-17] MEDS ORDERED: ATROPINE SULF 1 MG/10 ML SYR IV ONE (15:24)
[2020-11-17] MEDS ORDERED: HEPARIN 10,000 UNIT/10 ML VIAL IV ONE (15:25)
[2020-11-17] MEDS ORDERED: FENTANYL CITR 100 MCG/2 ML ONE (15:25)
[2020-11-17] MEDS ORDERED: MIDAZOLAM HCL 2 MG/2 ML INJ ONE (15:25)
[2020-11-17] MEDS ORDERED: VERAPAMIL HCL 10 MG/4 ML VIAL IV ONE (15:25)
[2020-11-17] MEDS ORDERED: CLOPIDOGREL 75 MG TABLET ONE (16:20)
[2020-11-17] MEDS ORDERED: HEPA 1000U/500MLS 1,000 UNIT/500 ML BAG IV ONE ×2 (16:30→17:07)
[2020-11-17 17:12] VITALS: TEMP 97
[2020-11-17 19:19] VITALS: O2SAT 97
[2020-11-17 19:20] VITALS: BP 115/58
--- NOTE | 2020-11-18 01:42 | OP ---
Date of Procedure: 11/17/2020 Surgeon: KAYODE GOLDMAN Procedure Performed: 1.Selective coronary angiogram. 2.Distal aortogram with bilateral selective peripheral angiogram bilaterally. 3.PCI of severe proximal left circumflex stenosis using 3.5 x 60 mm Synergy drug-eluting stent. 4.PCI of severe mid left circumflex stenosis using 3.5 x 16 mm Synergy drug-eluting stent overlapped for the area between 2 stents using a 3.5 x 20 mm Synergy drug-eluting stent due to proximal dissect ion and also presence of 60% disease that is diffuse. Indication: Unstable angina and claudication. Access: Right radial artery 6-Palestinian closed with TR band. Complications: None. Bleeding: Less than 10 mL. Description Of Procedure: After risks, benefits, and alternatives were explained, the patient agreed to the procedure and signed informed consent. The patient was brought into the cardiac catheterizat ion laboratory, prepped and draped in usual sterile fashion. Then, we accessed the right radial aj ry using pediatric micropuncture kit and took a 5-Palestinian Evergreen 4 catheter into the aortic root, engag ed left main, right coronary artery, took standard views, and then we took a long multipurpose guide into the ostium of the left common iliac artery and did selective angiogram of the left lower extremi ty and then engaged the ostium of the right common iliac artery and did selective angiogram of the ri ght lower extremity and then proceeded with further intervention on the coronary arteries. Intervention Details: We gave systemic heparin to assure ACT level above 250. Gave 600 mg of Plavix , 325 mg of aspirin. Then took 6-Palestinian EBU 3.5 into the aortic root over a J-wire, engaged left kacy n, took short run-through wire through the left circumflex artery, pre-dilated the lesions. Initiall y it was hard to expand and then using a high force with a larger NC balloon, the lesions expanded ve ry well, however created dissection in the mid left circumflex artery. We stented the mid lesion fir st and then the proximal lesion, and in between the 2 stents, there was a disease about 50 to 60% and the dissection did not get covered completely, so then I used another 3.5 x 20 mm stent overlap to b oth stents, overlapped area were dilated, and then final results were excellent. HAYDEN-3 flow with 0% residual stenosis and all stents expanded very well. I removed the catheter and the wire and the eath and placed TR band with good hemostasis. Findings: 1.Left main is large and normal. 2.LAD, mid diffuse, heavily calcified 80% and then distal 80% that is focal. 3.Left circumflex large with proximal 95% stenosis status post successful PCI as above followed by d iffuse 60% stenosis and then discrete area that has 90% stenosis status post successful PCI as above. 4.RCA, mid long calcified 40% stenosis. Peripheral Angiogram: 1.Distal aorta is patent. 2.Bilateral common iliacs are patent. No significant disease. 3.Bilateral femoral are patent and no significant disease. 4.Bilateral profunda are patent. 5.Bilateral SFAs with diffuse mild disease, 10% to 20% and heavy calcifications with patent lumen wi th good flow down to the knees and below the knees. 6.Patent bilateral flow below the knees. Conclusion: Severe left circumflex and LAD disease, heavily calcified LAD lesions, status post PCI o f the left circumflex today. As patient refused the option of bypass, we elected to fix the critical artery today, and we will plan for staged LAD PCI due to the contrast load. Plan: 1.Staged PCI with atherectomy of the LAD disease to be done in [place] in 2 weeks. 2.Aspirin, Plavix and high-dose statin. 3.Discharge once criteria are met. Follow up with me in the office in 1 week. /SHAYL Voice ID: [id number] Report ID: [id number]
== END 2020-11-17 20:33 | disposition home or self-care (01) ==
LOC: CCL 09:54
PROVIDERS: ATTEND Internal Medicine
DX: I25.110 Atherosclerotic heart disease of native coronary artery with unstable angina pectoris (principal); I70.213 Atherosclerosis of native arteries of extremities with intermittent claudication, bilateral legs; I10 Essential (primary) hypertension; E78.5 Hyperlipidemia, unspecified; E11.9 Type 2 diabetes mellitus without complications; E66.9 Obesity, unspecified; Z68.31 Body mass index [BMI] 31.0-31.9, adult; F17.210 Nicotine dependence, cigarettes, uncomplicated; G89.29 Other chronic pain; K21.9 Gastro-esophageal reflux disease without esophagitis; Z20.822 Contact with and (suspected) exposure to COVID-19; Z82.41 Family history of sudden cardiac death
CPT/HCPCS: 93005; 85025; 80048; 36415; 85610; 82947; 85347; 85730; 71046; 75630; 93454; U0002; C1893; C1725; C9601; C9600; J1644 ×4; J2250; J3010; J7040